=== PATIENT | male | born 1960 | race Caucasian/White ===

== ENCOUNTER 2016-06-02 12:53 | Emergency (ER) | payer SELFPAY ==
[2016-06-02 13:13] VITALS: BP 160/97
--- NOTE | 2016-06-02 13:30 | ED Physician Documentation ---
Upper Respiratory Symptoms - HISTORIAN Historian: patient, spouse - HPI Stated Complaint: head-cold Chief Complaint: Upper Respiratory Symptoms Additional Information: otitis sinusitis bronchitis Onset: days ago (3) Duration: constant Context: recent foreign travel. denies: insect bite(s) Severity: moderate Associated Symptoms: fever, chills, sweating, earache, runny nose, sinus pain. denies: bloody cough - ROS CONST/EYES: denies: weakness, eye redness, eye itching CVS/RESP: other (prod cough greenish plus green sinus drainage dizziness ear discomfort) LYMPH: denies: leg swelling, rash GI/: none NEURO/PSYCH: dizziness. denies: fainting, confusion - PAST HX Lung Disease: other (poss htn obesity prev ca kidney-removed 6 yrs ago) PE Risk Factors: hypertension Immunizations: UTD Allergies/Adverse Reactions: Allergies Allergy/AdvReac Type Severity Reaction Status Date / Time No Known Allergies Allergy Verified 06/02/16 13:13 Home Medications: Ambulatory Orders Medication Instructions Recorded Amoxicillin/Potassium Clav 1 each PO QID #40 tablet 06/02/16 [Augmentin 500-125 Tablet] Levothyroxine Sodium [Unithroid] 200 mcg PO QDAY 06/02/16 - SOCIAL HX Smoking History: non-smoker Alcohol Use: none Drug Use: none - FAMILY HX Family History: other (dm htn) - VITAL SIGNS Vital Signs: Vital Signs Temp Pulse Resp BP Pulse Ox 99 F 77 16 160/97 98 06/02/16 13:07 06/02/16 13:07 06/02/16 13:07 06/02/16 13:07 06/02/16 13:07 - REVIEWED ASSESSMENTS Nursing Assessment Reviewed: Yes Vitals Reviewed: Yes Upper Respiratory Symptoms - EXAM General Appearance: mild distress EENT: eyes nml inspection, pain over sinuses, frontal, maxillary Neck: normal inspection Respiratory: no resp. distress, breath sounds nml Abdomen: non-tender CVS: reg rate & rhythm, heart sounds normal Skin: color nml, no rash, warm,dry. No: cyanosis, diaphoresis, pallor Extremities: non-tender, normal range of motion, no evidence of injury, no edema Neuro/Psych: oriented x3 Discharge Clincal Impression: sinusitis otitis bronchitis Prescriptions: Amoxicillin/Potassium Clav [Augmentin 500-125 Tablet] 1 each PO QID #40 tablet Home Medications: Ambulatory Orders Amoxicillin/Potassium Clav [Augmentin 500-125 Tablet] 1 each PO QID #40 tablet 06/02/16 Levothyroxine Sodium [Unithroid] 200 mcg PO QDAY 06/02/16 Condition: Good Disposition: 01 HOME, SELF-CARE Decision to Admit: NO Decision Time: 13:33
== END 2016-06-02 13:26 | disposition home or self-care (01) ==
LOC: ED 12:53
DX: J32.9 Chronic sinusitis, unspecified (principal); J20.9 Acute bronchitis, unspecified; H66.93 Otitis media, unspecified, bilateral
CPT/HCPCS: 99283

== ENCOUNTER 2016-12-19 15:48 | Emergency (ER) | payer SELFPAY ==
[2016-12-19 16:02] VITALS: BP 139/81
--- NOTE | 2016-12-19 16:05 | ED Physician Documentation ---
General Adult - HISTORIAN Historian: patient - HPI Stated Complaint: sinus pressure Chief Complaint: General Adult Onset: days ago (2 weeks) Timing: still present Severity: moderate Further Comments: yes (Pt is a 56 yo male with sinus pain/pressure that he has had off & on for 2 weeks. Pt has been using otc meds and nasal washes. Pt has had sinus drainage. No cough.) - ROS CONST: no problems EYES/ENT: sore throat, nasal drainage, other (sinus pain) CVS/RESP: none GI/: none MS/SKIN/LYMPH: none - PAST HX Past History: other (hypothyroidism, R kidney cancer with nephrectomy) Allergies/Adverse Reactions: Allergies Allergy/AdvReac Type Severity Reaction Status Date / Time No Known Allergies Allergy Verified 12/19/16 16:03 Home Medications: Ambulatory Orders Medication Instructions Recorded Amoxicillin [Trimox] 500 mg PO TID #42 capsule 12/19/16 - SOCIAL HX Smoking History: non-smoker - FAMILY HX Family History: No - VITAL SIGNS Vital Signs: Vital Signs Temp Pulse Resp BP Pulse Ox 97.8 F 78 20 139/81 95 12/19/16 15:57 12/19/16 15:57 12/19/16 15:57 12/19/16 15:57 12/19/16 15:57 - REVIEWED ASSESSMENTS Nursing Assessment Reviewed: Yes Vitals Reviewed: Yes Progress - Progress Progress: Rx Amoxicillin 500 mg. Take one every 8 hrs for 14 days. Continue nasal washes. General Adult Physical Exam - PHYSICAL EXAM GENERAL APPEARANCE: mild distress EENT: pharynx normal NECK: normal inspection, supple RESPIRATORY: no resp distress, chest non-tender, breath sounds normal CVS: reg rate & rhythm, heart sounds normal BACK: normal inspection SKIN: warm/dry, normal color EXTREMITIES: non-tender, normal range of motion, no evidence of injury, no edema NEURO: oriented X3, motor nml, sensation nml Discharge Clincal Impression: Sinusitis Qualifiers: Sinusitis location: unspecified location Chronicity: acute Recurrence: non- recurrent Qualified Code(s): J01.90 - Acute sinusitis, unspecified Prescriptions: Amoxicillin [Trimox] 500 mg PO TID #42 capsule Condition: Good Disposition: 01 HOME, SELF-CARE Decision to Admit: NO Decision Time: 16:05
== END 2016-12-19 16:43 | disposition home or self-care (01) ==
LOC: ED 15:48
DX: J01.90 Acute sinusitis, unspecified (principal)
CPT/HCPCS: 99283

== ENCOUNTER 2017-06-15 10:11 | Outpatient (CLI) | payer SELFPAY ==
[2017-06-15 11:18] LABS: BASOPHILS % 0.7 (0.0-1.5); EOSINOPHILS % 3.1 % (0.0-6.8); MEAN CORPUSCULAR HEMOGLOBIN 29.6 pg (28.0-34.0); MEAN CORPUSCULAR VOLUME 86.6 fl (80.0-100.0); MONOCYTES % 5.7 % (0.0-11.0); NEUTROPHILS # 4.6 # k/uL (1.4-7.7)
[2017-06-15 11:59] LABS: APPEARANCE,URINE Clear (CLEAR); COLOR,URINE Yellow (YELLOW); OCCULT BLOOD,URINE Negative (NEGATIVE); PH URINE 5.5 (5.0 - 8.0); UROBILINOGEN URINE 0.2 Eu (0.2-1.0)
[2017-06-15 12:19] LABS: eGFR (African) > 60; eGFR (Non-African) > 60
== END 2017-06-15 10:15 ==
LOC: LAB 10:11
PROVIDERS: ATTEND Family Medicine
DX: E78.2 Mixed hyperlipidemia (principal); N40.1 Benign prostatic hyperplasia with lower urinary tract symptoms
CPT/HCPCS: 36415; 80053; 80061; 81002; 84153; 84403; 85025